=== PATIENT | male | born 1960 | race Caucasian/White ===

== ENCOUNTER 2018-12-26 09:06 | Inpatient (IN) | payer OTHER ==
[~2018-12-26] VITALS: Ht 172.7 cm; Wt 154.2 kg
--- NOTE | ~2018-12-26 | OP ---
[address] [address] OPERATIVE REPORT Name: GUERLINE FITZGERALD Yany Room: [address] IN .R.#: [id number] Admission: 12/26/18 Attend Phys: Aurora Mai MD Discharge: Date of : 62 Report #: [id number] THIS REPORT FOR: //name// CC: Aurora Castellon DATE OF SERVICE: 12/27/2018 INDICATION FOR PROCEDURE: The patient is a 58-year-old gentleman who was admitted through the Emergency Department due to severe right-sided flank pain. Evaluation with CT scan revealed an 8 mm right proximal ureteral calculus. After discussing all treatment options in detail with the patient and due to the fact that the stone is not well visualized on plain films due to the patient's body habitus, he elected to proceed with a cystoscopy with right ureteroscopic stone extraction, holmium laser lithotripsy and stent. PREOPERATIVE DIAGNOSIS: Right ureteral calculus. POSTOPERATIVE DIAGNOSIS: Right ureteral calculus. PROCEDURE: Cystoscopy, right retrograde pyelogram, right ureteroscopic stone extraction with holmium laser lithotripsy, right double-J stent placement. SURGEON: Tony Dorsey MD ANESTHESIA: General. COMPLICATIONS: None. ESTIMATED BLOOD LOSS: None. PROCEDURE IN DETAIL: The patient was consented for the above procedure. He was given broad spectrum IV antibiotics preoperatively. He was given general anesthetic, placed in a dorsal lithotomy position. He was prepped and draped in a sterile fashion over the genitalia. A stone was not seen on fluoroscopy. Cystoscopy was performed with a 22-Guinean sheath and 30 degree lens. This was somewhat difficult due to the patient's body habitus making entrance into the patient's bladder difficult due to the length of the urethra. I could get the beak of the urethra just inside the bladder neck and I was able to visualize the ureteral orifices, which were in the proper position. The patient had no stones, ulcerations or tumors within the bladder itself. Based on that, a 5-Guinean open-ended catheter was used to perform a right retrograde pyelogram, which revealed a normal distal ureter up to the level of the proximal one-fourth of the ureter where a filling defect was seen, which was consistent with the [place] [id number] OPERATIVE REPORT Name: GUERLINE FITZGERALD Room: [address] IN .R.#: [id number] Admission: 12/26/18 Attend Phys: Aurora Mai MD Discharge: Date of : 62 Report #: [id number] A 0.035 floppy-tipped guidewire was passed up the right ureter under fluoroscopic guidance past the stone and into the right renal pelvis. The scope was then removed leaving the guidewire in place. The 11/13-Guinean 36 cm ureteral access sheath was then passed over the wire up into the distal third of the ureter under fluoroscopic guidance without difficulty. The sheath was left in place while the trocar and wire were removed. Next, the flexible ureteroscope was used to perform ureteroscopy through the sheath and then up the ureter to the level where this large stone was identified. A 200 micron holmium laser was then used to fragment the stone. The stone was fairly trapped within the ureter, so I was able to really destroy the stone in most of its entirety before it finally washed back up into the kidney. Once that occurred, I was then able to trap it into the middle pole janis and then fragmented it further until all pieces were very small and could all be easily passed. Once I was confident that all fragments were broken up, I took a good look around the upper collecting system and did not see any other evidence of stones. The ureteroscope was removed. The guidewire was replaced up the sheath and back into the left renal pelvis under fluoroscopic guidance. The access sheath was then removed leaving the guidewire in place. The cystoscope was backloaded over the wire and then a 4.8 x 28 double-J stent was passed over the wire with a good curl noted in the renal pelvis and in the bladder after removing the wire. This was confirmed with fluoroscopy and cystoscopy. The bladder was drained, the scope was removed. Urojet was placed per urethra for local anesthesia. The patient was awakened and sent to recovery room, remained in stable condition. He will be dismissed to home when okay per the hospitalist service and will plan follow up with me in 1 week for stent removal. By: [id number] Jeannette Dorsey MD /marizol
[~2018-12-26 09:06] MED LIST: FLEXERIL PO; PERCOCET 5-3251 EACH PO; PREDNISONE 10 M10 MG PO; TRAMADOL 50 MG50 MG PO
[2018-12-26 09:17] VITALS: BP 159/86
[2018-12-26] MEDS ORDERED: METFORMIN HCL500 MG PO (09:20)
[2018-12-26] MEDS ORDERED: IRON325 PO (09:21)
[2018-12-26] MEDS ORDERED: SIMVASTATIN40 MG PO (09:21)
[2018-12-26] MEDS ORDERED: LISINOPRIL40 MG PO (09:21)
[2018-12-26] MEDS ORDERED: FISH OIL 1,001000 M2 PO (09:21)
[2018-12-26] MEDS ORDERED: JANUVIA100 MG PO (09:21)
[2018-12-26] MEDS ORDERED: VITAMIN D31000 UNIT PO (09:22)
[2018-12-26] MEDS ORDERED: ASPIRIN81 M2 PO (09:22)
[2018-12-26 09:47] LABS: ABSOLUTE EOSINOPHILS 0.1 thou/uL (0.0-0.7); ABSOLUTE LYMPHOCYTES 1.4 thou/uL (0.8-5.3); ABSOLUTE MONOCYTES 0.9 thou/uL (0.0-1.2); ABSOLUTE NEUTROPHILS 9.2 thou/uL (1.6-8.1); BASOPHILS 0.4 %; EOSINOPHILS 1.2 %; HEMATOCRIT 40.7 % (42.0-52.0); HEMOGLOBIN 13.7 gm/dL (14.0-18.0); LYMPHOCYTES 11.6 %; MCH 27.2 pg (26.0-34.0); MCHC 33.5 g/dL (28.0-37.0); MCV 81.2 fL (80.0-100.0); MONOCYTES 8.1 %; MPV 8.1 fl. (7.2-11.1); NUCLEATED RBCS 0 /100WBC; PLATELET COUNT* 330 thou/uL (150-400); POLYS 78.7 %; RBC 5.02 mil/uL (4.50-6.00); RDW-CV 15.7 % (10.5-14.5); WBC 11.7 thou/uL (4.0-11.0)
[2018-12-26 09:56] LABS: URINE BILIRUBIN NEGATIVE (Negative); URINE BLOOD 3+ (Negative); URINE CLARITY CLEAR; URINE COLOR YELLOW; URINE GLUCOSE-RANDOM TRACE (Negative); URINE KETONES NEGATIVE (Negative); URINE LEUKOCYTES-REFLEX NEGATIVE (Negative); URINE NITRITE-REFLEX NEGATIVE (Negative); URINE PROTEIN NEGATIVE (Negative); URINE SPECIFIC GRAVITY >= 1.030 (1.005-1.030); URINE UROBILINOGEN 0.2 E.U./dl (0.2-1.0)
[2018-12-26 09:57] LABS: CALCIUM 9.8 mg/dL (8.5-10.1); CREATININE 1.4 mg/dL (0.6-1.3); POTASSIUM 4.4 mmol/L (3.5-5.1)
[2018-12-26 10:01] LABS: TOTAL BILIRUBIN 0.3 mg/dL (<0.1-1.0); TOTAL PROTEIN 7.8 g/dL (6.4-8.2)
[2018-12-26 10:17] LABS: BACTERIA-REFLEX 1-9 Few /HPF (None Seen); CASTS None Seen /LPF (None Seen); CRYSTALS None Seen /LPF (None Seen); MUCUS None Seen strn/LPF (None Seen); SQUAMOUS 4-10 Moderate /LPF (0-3); URINE WBC-REFLEX 0-5 Rare /HPF (0-5)
[2018-12-26 11:16] VITALS: BP 110/68
[2018-12-26 11:52] VITALS: BP 118/62
--- NOTE | 2018-12-26 12:18 | NUR ---
PATIENT ADMITTED FROM ER TO ROOM 114. ALERT AND ORIENTED. PAIN UNDER CONTROL CURRENTLY. UROLOGY CONSULTED.IVF AND IV ABX INFUSINF ORDERED. NPO. UP AD CALVIN. EDUCATED ON FALL PREVENTION. ADMISSION HISTORY AND ASSESSMENT CHARTED. AT BEDSIDE. CALL LIGHT WITHIN REACH. WILL CONTINUE TO MONITOR.
[2018-12-26 15:54] VITALS: BP 122/62
--- NOTE | 2018-12-26 16:05 | NUR ---
PATIENT REMAINS ALERT AND ORIENTED. DENIES FLANK PAIN OR NAUSEA. HAS CHRONIC BACK PAIN. HOME MEDS RESTARTED. UP AD CALVIN. FLOMAX STARTED. URINE STRAINED. UROLOGY ROUNDING ON PATIENT NOW. FAMILY AT BEDSIDE. WILL CONTINUE TO MONITOR.
[2018-12-26 20:00] VITALS: BP 112/59
--- NOTE | 2018-12-27 04:35 | NUR ---
PT REMAINED A&Ox4 THROUGHOUT SHIFT. PAIN CONTROLLED. DENIED NAUSEA. IV IN L AC PATENT, SL. VITALS STABLE. UP AD CALVIN. REMAINED NPO SINCE MIDNIGHT FOR STENT PLACEMENT. CPAP IN PLACE. CALL LIGHT WITHIN REACH. HOURLY ROUNDING COMPLETE. WILL CONTINUE TO MONITOR.
[2018-12-27 04:40] LABS: MCH 27.6 pg (26.0-34.0); MCHC 33.6 g/dL (28.0-37.0); MCV 82.2 fL (80.0-100.0); MPV 8.1 fl. (7.2-11.1); RBC 3.77 mil/uL (4.50-6.00); RDW-CV 15.6 % (10.5-14.5); WBC 7.6 thou/uL (4.0-11.0)
[2018-12-27 04:54] LABS: CALCIUM 8.2 mg/dL (8.5-10.1); CREATININE 1.9 mg/dL (0.6-1.3); MAGNESIUM 1.4 mg/dL (1.8-2.4); POTASSIUM 4.3 mmol/L (3.5-5.1)
[2018-12-27 05:04] LABS: HEMOGLOBIN 10.4 gm/dL (14.0-18.0)
[2018-12-27] MEDS ORDERED: VENLAFAXIN37.5 MG/1 PO (07:48)
[2018-12-27 08:20] VITALS: BP 111/58
[2018-12-27 10:57] VITALS: BP 111/58
--- NOTE | 2018-12-27 11:50 | NUR ---
PATIENT TRANSFERRED TO SURGERY AT THIS TIME
--- NOTE | 2018-12-27 14:57 | NUR ---
PATIENT RETURNED FROM SURGERY AT THIS TIME. ALERT AND ORIENTED. DENIES PAIN. TOLERATING LIQUIDS. PLANS TO DC TONIGHT IF PAIN CONTROLLED, TOLERATING DIET, AND VOIDING WITHOUT DIFFICULTY. AT BEDSIDE. WILL CONTINUE TO MONITOR.
[2018-12-27 15:07] VITALS: BP 111/58
--- NOTE | 2018-12-27 15:47 | NUR ---
PATIENT REMAINS ALERT AND ORIENTED. DENIES PAIN. UP AD CALVIN. IVF RESTARTED AT 100ML/HR PER DR. DE PAZ. CT 1.[address] DE PAZ DOES NOT WANT TO DISCHARGE TONIGHT. PATIENT AND INFORMED OF PLAN. CALL LIGHT WITHIN REACH. WILL CONTINUE TO MONITOR.
[2018-12-27 20:00] VITALS: BP 143/53
[2018-12-28 00:32] VITALS: BP 133/81
[2018-12-28 04:31] VITALS: BP 124/77
[2018-12-28 04:40] LABS: MCH 27.4 pg (26.0-34.0); MCHC 33.3 g/dL (28.0-37.0); MCV 82.2 fL (80.0-100.0); MPV 8.4 fl. (7.2-11.1); RBC 4.38 mil/uL (4.50-6.00); RDW-CV 15.8 % (10.5-14.5); WBC 6.8 thou/uL (4.0-11.0)
[2018-12-28 04:52] LABS: CALCIUM 8.7 mg/dL (8.5-10.1); CREATININE 1.2 mg/dL (0.6-1.3); MAGNESIUM 1.9 mg/dL (1.8-2.4); POTASSIUM 4.5 mmol/L (3.5-5.1)
--- NOTE | 2018-12-28 04:55 | NUR ---
PT REMAINED A&Ox4 THROUGHOUT SHIFT. PAIN CONTROLLED WITH TRAMADOL. VITALS STABLE. IV IN L AC PATENT, INFUSING. PT PUT ON CPAP AT BEDTIME. UP AD CALVIN IN ROOM. NO STONES FOUND. HOURLY ROUNDING COMPLETE. CALL LIGHT WITHIN REACH. WILL CONTINUE TO MONITOR.
[2018-12-28 08:30] VITALS: BP 130/59
[2018-12-28 08:36] VITALS: BP 130/59
[2018-12-28] MEDS ORDERED: HYDROCODON-ACE1 EAC7 PO (09:41)
[2018-12-28 10:45] VITALS: BP 111/58
[2018-12-28 11:35] VITALS: BP 111/58
--- NOTE | 2018-12-28 11:36 | NUR ---
PT GIVEN DISHCARGE INFORMATION. PRESCRIPTIONS AND CARE NOTES GIVEN. PT GIVEN INFORMATION ON FOLLOW UPS. IV REMOVED. PT LEFT AMBULATORY TO HOME CARE WITH SPOUSE. FALL RISK PRECAUTIONS IN PLACE. HOURLY ROUNDING COMPLETED.
--- NOTE | 2018-12-28 12:06 | NUR ---
I AGREE WITH MARIYA MARI ASSESSMENT. THIS NURSE JAY ANDRADE.
--- NOTE | 2018-12-28 15:51 | EKG ---
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 12/28/18 1551 1227 1227 Cameron Dawson MD, [facility] /EPI
[2018-12-30 11:12] LABS: STONE CA OXALATE DIHYDRATE 10 % (()); STONE CA OXALATE MONOHYDRATE 75 % (()); STONE CALCIUM PHOSPHATE 15 % (()); STONE COLOR Brown (()); STONE COMMENT Note: (())
== END 2018-12-28 11:38 | disposition home or self-care (01) | DRG 660 ==
LOC: M.ERS 09:06 → M.ORTHSURG 10:35 → M.TBA-ER 10:35 → M.ORTHSURG 10:48
PROVIDERS: Family Medicine; ADMIT Internal Medicine
PROC: BT1D1ZZ Fluoroscopy of Right Kidney, Ureter and Bladder using Low Osmolar Contrast (ICD-10-PCS; principal; 2018-12-27)
PROC: 0TF68ZZ Fragmentation in Right Ureter, Via Natural or Artificial Opening Endoscopic (ICD-10-PCS; principal; 2018-12-27)
PROC: 0T768DZ Dilation of Right Ureter with Intraluminal Device, Via Natural or Artificial Opening Endoscopic (ICD-10-PCS; principal; 2018-12-27)
DX: N13.2 Hydronephrosis with renal and ureteral calculous obstruction (principal); Z68.43 Body mass index [BMI] 50.0-59.9, adult; N17.0 Acute kidney failure with tubular necrosis; F32.9 Major depressive disorder, single episode, unspecified; E78.5 Hyperlipidemia, unspecified; I10 Essential (primary) hypertension; E66.01 Morbid (severe) obesity due to excess calories; M48.061 Spinal stenosis, lumbar region without neurogenic claudication; R31.29 Other microscopic hematuria; E11.9 Type 2 diabetes mellitus without complications; M51.26 Other intervertebral disc displacement, lumbar region; Z90.49 Acquired absence of other specified parts of digestive tract; Z82.49 Family history of ischemic heart disease and other diseases of the circulatory system; Z87.891 Personal history of nicotine dependence